=== PATIENT | female | born 1990 | race African-American/Black ===

== ENCOUNTER → 2016-09-18 | Outpatient (CLI) | payer OTHER ==
--- NOTE | 2016-09-18 12:19 | DIAGNOSTIC IMAGING REPORT ---
EXAMINATION: PELVIC ULTRASOUND CLINICAL HISTORY: ABNORMAL BLEEDING BLEEDING COMPARISON STUDY: None FINDINGS: The uterus measured 6.5 cm. The endometrial stripe measured 9 mm. The right ovary measured 2.7 cm maximum dimension. 1.8 cm cyst. Normal vascular flow.. The left ovary measured not well seen. There is no ultrasonographic evidence of ovarian torsion. It should be noted that ovarian torsion can be present with normal Doppler ultrasonographic findings. There was no evidence of pathologic free pelvic fluid. IMPRESSION: 1. Small right ovarian cyst. 2. Nonvisualization of left ovary possibly due to overlapping bowel. 3. Otherwise negative study Electronically signed by: Matthew Zapata M.D. 09/18/2016 12:17 PM Dictated Date/Time: 09/18/2016 12:16 PM
== END | disposition home or self-care (01) ==
LOC: C.ULTR 11:05
PROVIDERS: ATTEND Obstetrics & Gynecology
DX: N93.9 Abnormal uterine and vaginal bleeding, unspecified (principal)

== ENCOUNTER → 2017-12-16 | Day surgery (SDC) | payer OTHER ==
[2017-12-09 08:18] VITALS: Ht 154.9 cm; Wt 77.3 kg
--- NOTE | 2017-12-15 08:39 | History and Physical: Surg Cnt ---
History & Physical Date December 15, 2017. Chief Complaint sinus infections History of Present Illness The patient is a 27 year old female with complaints of chronic pansinusitis documented on CT, septal deviation to right Additional History Hepatic Disease: No Endocrine Disorder: No Kidney Disease: No Hypertension: No Heart Disease: No Bleeding Tendencies: No Infectious Diseases: No Allergies Coded Allergies: No Known Allergies (Unverified , 12/09/17) Home Medications Scheduled Valacyclovir Hcl (Valtrex), 1,000 MG PO QPM Scheduled PRN Cyclobenzaprine Hcl (Flexeril), 10 MG PO TID PRN for Muscle Spasms Physical Examination Skin: warm/dry, no rash Eyes: normal inspection, EOMI, sclerae normal ENT: normal ENT inspection, pharynx normal Head: normocephalic, atraumatic Neck: supple, no adenopathy, trachea midline Respiratory/Chest: lungs clear, normal breath sounds, no respiratory distress Cardiovascular: regular rate, rhythm, no edema, no murmur Abdomen / GI: normal bowel sounds, non tender Back: normal inspection Extremities: normal inspection, normal range of motion Neurologic/Psych: no motor/sensory deficits, alert, normal reflexes, oriented x 3 Diagnosis chronic sinusitis, septal deviation Plan of Treatment endoscopic sinus surgery and septoplasty
[~2017-12-16] VITALS: Ht 154.9 cm; Wt 77.3 kg
[~2017-12-16] MED LIST: ATROPINE SULFATE 0.1 MG/ML 5ML SYR IV PRN; BACITRACIN OINT 15 GM TUBE ONE; CEFAZOLIN 1000MG IV PUSH 7.5 ML IV SCH; CYCL10TA6 PO; DEXAMETHASONE SOD INJ 4 MG/ML VIAL ONE; EpHEDrine SULFATE 50MG/5ML SYR ONE; EpHEDrine SULFATE INJ 50 MG/ML AMP IV PRN; EpINEphrine INJ 1MG/ML AMP 1 MG/ML AMP ONE; FENTANYL CITRATE INJ 50 MCG/1 ML 2 ML VIAL ONE; GELATIN SPONGE 12-7MM ONE; LACTATED RINGER'S 1000ML 1,000 ML IV SCH; LIDO 2%/EPINEPHRINE 1:100000 20 ML VIAL ONE; LIDOCAINE 4% MPF SOAK 5 ML = 1 DOSE ONE; LIDOCAINE HCL 2% 2 ML VIAL (20MG/ML) ONE; MIDAZOLAM HCL 1 MG/ML 2ML VIAL ONE; ONDANSETRON INJ 2 MG/ML 2 ML VIAL IV PRN; ONDANSETRON INJ 2 MG/ML 2 ML VIAL ONE; OXYCODONE/ACETAMINOPHEN 5-325 TAB PO PRN; PROPOFOL IV EMULSION 10 MG/ML 20 ML VIAL ONE; SCOPOLAMINE 1.5 MG TDSY TD ONE; SODIUM CHLORIDE 0.9% 1000ML 1,000 ML IV SCH; TRAM-10 PO; VALA1TAB2 PO
--- NOTE | 2017-12-16 12:30 | History & Physical Bridge Note ---
H&P Re-Evaluation Bridge Note: I have examined the patient, reviewed the History & Physical and in the interval since the performance of the History & Physical I have noted the following changes of clinical significance: No changes noted
--- NOTE | 2017-12-16 12:32 | Discharge Instructions-SurgCtr ---
Discharge Instructions Date of Service December 16, 2017. Visit Reason for Visit: Chronic Sinusitis, Septal Deviation Discharge Discharge Diagnosis / Problem: same Discharge Goals Goal(s): Improve function Medications Stopped Medications Name(s): last dose of advil 12/14 Activity Recommendations Activity Limitations: resume your previous activity Anesthesia . Post Anesthesia Instructions: If you have had General Anesthesia or IV Sedation: * Do not drive today. * Resume driving when surgeon permits. * Do not make important decisions or sign legal documents today. * Call surgeon for: 1. Temperature elevations greater than 101 degrees F. 2. Uncontrollable pain. 3. Excessive bleeding. 4. Persistent nausea and vomiting. 5. Medication intolerance (nausea, vomiting or rash). * For nausea and vomiting use only clear liquids such as: tea, soda, bouillon until nausea subsides, then gradually increase diet as tolerated. * If you have any concerns or questions, call your surgeon's office. If physician is unavailable and it is an emergency, call 911 or go to the nearest emergency room. . Instructions / Follow-Up Instructions / Follow-Up ACTIVITY RECOMMENDATIONS: * Being up and around is good, but no strenuous activity, heavy lifting or physical exertion for one week. * Keep your head elevated 30 degrees when lying down or sleeping. * Do not blow your nose for 48 hours, sniff back instead. * Avoid hot showers. OVER THE COUNTER MEDICATIONS: * You may use Tylenol * Avoid aspirin or aspirin containing products, e.g. as they may increase bleeding. SPECIAL CARE INSTRUCTIONS: * Expect to have bloody drainage from your nose and/or down your throat for one to three days. Change drip pad as needed. * Begin irrigating your nose with saline solution today, at least six to ten times per day and sniff back to help remove old clots or crust. * You may experience nasal and facial congestion, pain and pressure, this is normal. * Please call with any significant and/or progressive pain, redness, swelling around the eyes, visual changes, fever of 101.5 degrees F, active bleeding or any problems or concerns. * If active bleeding occurs, spray the nose three times at one minute intervals with Afrin spray and call or cell phone: . If unable to reach the doctor, go to the nearest Emergency Department. Special Diet: * Avoid extremely hot fluids. FOLLOW UP VISIT: Follow-up Visit with Dr. Johnston If not already scheduled, please call to schedule. Diet Recommendations Home Diet: no limitations Pending Studies Studies pending at discharge: no Medical Emergencies . Who to Call and When: Medical Emergencies: If at any time you feel your situation is an emergency, please call 911 immediately. . Non-Emergent Contact Non-Emergency issues call your: Primary Care Provider . . "Provider Documentation" section prepared by Columba Johnston. . [place] Drug Monitoring Program Search Results: no issues identified
--- NOTE | 2017-12-16 14:29 | [facility] Post Operative Brief Note ---
Immediate Operative Summary Operative Date December 16, 2017. Pre-Operative Diagnosis Chronic Sinusitis; Septal Deviation Post-Operative Diagnosis Same Procedure(s) Performed Septoplasty, Endoscopic Sinus Surgery, Right and Left Front, Right and Left Maxillary, Right and Left Total Ethmoidectomies Surgeon Dr. Johnston Can Doffer Surgeon(s) None Estimated Blood Loss 75ML Findings Consistent with Post-Op Diagnosis Specimens NONE Drains None Anesthesia Type General Complication(s) none Disposition Accompanied Pt To Recovery: yes Disposition: Recovery Room / PACU
[2017-12-16] MEDS: FENTANYL CITRATE INJ 50 MCG/1 ML 2 ML VIAL IV PRN ×2 (15:11→15:23)
[2017-12-16 15:43] VITALS: TEMP 36.4
[2017-12-16 16:38] VITALS: BP 119/68; PULSE 68; O2SAT 100
--- NOTE | 2017-12-16 16:52 | Anesthesia Progress Nt - [facility] ---
Anesthesia Post Op Note Date & Time December 16, 2017 at 16:52 Vital Signs Pain Intensity: 4 Vital Signs Past 12 Hours Date Time Temp Pulse Resp B/P (MAP) Pulse Ox O2 Delivery O2 Flow Rate FiO2 12/16/17 16:38 68 14 119/68 (85) 100 Room Air 12/16/17 16:10 58 14 125/81 (96) 100 Room Air 12/16/17 15:43 36.4 73 16 117/54 (75) 99 Room Air 12/16/17 15:36 69 0 91 12/16/17 15:36 70 0 12/16/17 15:35 119/75 12/16/17 15:34 36.6 82 20 119/75 98 Room Air 12/16/17 15:33 82 17 12/16/17 15:33 85 17 97 12/16/17 15:32 77 22 97 12/16/17 15:32 80 22 12/16/17 15:30 109/73 12/16/17 15:27 71 14 96 12/16/17 15:27 72 14 12/16/17 15:26 68 13 96 12/16/17 15:26 74 13 12/16/17 15:25 119/64 12/16/17 15:21 82 18 12/16/17 15:21 81 18 97 12/16/17 15:20 111/62 12/16/17 15:17 76 10 98 12/16/17 15:17 77 10 12/16/17 15:16 107/75 12/16/17 15:13 83 13 99 12/16/17 15:13 83 13 12/16/17 15:12 78 8 99 12/16/17 15:12 77 8 12/16/17 15:11 121/65 12/16/17 15:07 83 8 100 12/16/17 15:07 87 8 12/16/17 15:06 72 4 12/16/17 15:06 72 4 100 12/16/17 15:05 122/66 12/16/17 15:02 95 16 100 12/16/17 15:02 93 16 12/16/17 15:01 96 16 12/16/17 15:01 98 16 100 12/16/17 15:00 125/70 12/16/17 14:56 91 15 100 12/16/17 14:56 91 15 12/16/17 14:55 123/77 12/16/17 14:51 82 17 12/16/17 14:51 82 17 100 12/16/17 14:50 129/74 12/16/17 14:49 80 22 100 12/16/17 14:49 81 22 12/16/17 14:48 82 12 100 12/16/17 14:48 82 12 12/16/17 14:46 119/80 12/16/17 14:43 80 18 12/16/17 14:43 81 18 100 12/16/17 14:40 122/86 12/16/17 14:39 129/94 12/16/17 14:38 36.8 90 16 129/94 100 Mask 8 12/16/17 09:41 36.7 55 20 102/70 (81) 98 Room Air Notes Mental Status: alert / awake / arousable, participated in evaluation Pt Amnestic to Procedure: Yes Nausea / Vomiting: adequately controlled Pain: adequately controlled Airway Patency, RR, SpO2: stable & adequate BP & HR: stable & adequate Hydration State: stable & adequate Anesthetic Complications: no major complications apparent
--- NOTE | 2017-12-17 10:09 | OPERATIVE REPORT ---
DATE OF OPERATION: 12/16/2017 PREOPERATIVE DIAGNOSIS: Chronic sinusitis and septal deviation. POSTOPERATIVE DIAGNOSIS: Chronic sinusitis and septal deviation. PROCEDURE: Right and left frontal sinusotomy, right and left total ethmoidectomy, right and left maxillary sinus antrostomies with endoscopic septoplasty. SURGEON: Columba Johnston MD ANESTHESIA: General LMA. COMPLICATIONS: None. BLOOD LOSS: 75 mL. HISTORY OF PRESENT ILLNESS: A 27-year-old with recurrent and chronic sinusitis, chronic nasal obstruction, septal deviation to the right. DESCRIPTION OF PROCEDURE: The patient brought to operating room and placed in supine position. General endotracheal anesthesia was induced using LMA, prepped and draped in the usual sterile manner. BrainLAB device was calibrated and used for the entire procedure. The nose was decongested with cottonoids with a solution of 4 mL of 4% Xylocaine mixed with 1 mL of epinephrine. Injection of 1% Xylocaine with 1:100,000 strength epinephrine was also used. The left nasofrontal duct was cannulated with the guidewire and dilated using 6 mm balloon. The guidewire was left in place as a marker for frontal sinusotomy, which was performed by removing the anterior wall, then the posterior wall of the agger nasi cell, leaving the mucosa in the nasofrontal duct intact. At this point, total ethmoidectomy was performed opening up the bullae ethmoidalis going through the ground lamella into the posterior ethmoid air cells, delineating the posterior most ethmoid air cell along with the skull base and lamina papyracea with the BrainLAB device and then opening up all the posterior ethmoid air cells and opening up all the anterior ethmoid air cells up to the previously dilated nasofrontal duct. Maxillary sinus was dilated using the 6 mm balloon and then further opened by removing polypoid tissue at the posterior border at the anterior wall of the bullae ethmoidalis. The right frontal sinusotomy, total ethmoidectomy, and maxillary sinus antrostomy was performed in similar manner. Endoscopic septoplasty was performed. A right Reanto incision was made. The mucoperichondrium was elevated off the right side of the septum. The septal cartilage fat was inferiorly from the vomer maxillary crest and posteriorly from the perpendicular plate of the ethmoid. Bilateral posterior tunnels were elevated and then the bony and cartilaginous spur projecting to the right was removed using Júnior rongeurs, Burnet dissectors, and Mohit forceps. This returned the septum to the midline. The contour stents were placed in the nasofrontal duct and Propel stents placed in the middle meatus area and then a piece of Gelfoam was placed along the right side of the septum. The patient tolerated the procedure well, was taken to recovery area in satisfactory condition. I attest to the content of the Intraoperative Record and any orders documented therein. Any exception s are noted below.
== END | disposition home or self-care (01) ==
LOC: X.SURG 09:16
PROVIDERS: ATTEND Otolaryngology
DX: J32.9 Chronic sinusitis, unspecified (principal); J34.2 Deviated nasal septum; Z79.899 Other long term (current) drug therapy